=== PATIENT | female | born 1970 | race Two or more races ===

== ENCOUNTER 2024-11-28 08:38 | Outpatient (CLI) | payer OTHER | END 2024-11-28 08:44 | disposition home or self-care (01) | LOC: NUCLEAR 08:38 | PROVIDERS: ATTEND Internal Medicine | DX: C50.512 Malignant neoplasm of lower-outer quadrant of left female breast (principal) ==

== ENCOUNTER → 2024-12-13 | Day surgery (SDC) | payer OTHER ==
[2024-12-12 10:19] LABS: PH,URINE 7.5 (5.0-8.0); URINE APPEARANCE Clear; URINE BILIRRUBIN Negative (NEGATIVE); URINE BLOOD Negative; URINE COLOR Yellow; URINE GLUCOSE Negative (NEGATIVE); URINE KETONE Negative (NEGATIVE); URINE LEUKOCYTE Negative; URINE NITRATE Negative; URINE PROTEIN Negative (NEGATIVE); URINE UROBILINOGEN 0.2 E.U./dl
[2024-12-12 10:20] LABS: HEMATOCRIT 40.2 % (36.0-45.00); HEMOGLOBIN 13.2 g/dL (12.0-15.00); MEAN CORPUSCULAR HEMOGLOBIN 25.7 pg (27.00-32.0); MEAN CORPUSCULAR HGB CONC 32.9 g/dl (32.0-36.0); PLATELET COUNT 245 K/uL (150-450); RED BLOOD COUNT 5.16 M/uL (4.00-6.00); RED CELL DISTRIBUTION WIDTH 13.6 % (11.5-14.5)
[2024-12-12 10:39] LABS: URINE BACTERIA 0 uL (0.0-1933); URINE EPITHELIAL CELLS 1.2 uL (0.0-38.8); URINE WBC 0.3 uL (0.0-23.2)
[2024-12-12 10:48] LABS: INR 0.95; PARTIAL THROMBOPLASTIN TIME 26.5 SECONDS (22.0-34.0); PROTHROMBIN TIME 10.4 SECONDS (9.0-11.5)
[2024-12-12 11:16] VITALS: BP 115/76
[2024-12-12 11:22] LABS: CALCIUM 9.2 mg/dL (8.5-10.1); CREATININE SERUM 0.74 mg/dL (0.55-1.02); GFR 82.09; POTASSIUM 4.28 mEq/L (3.5-5.1)
[~2024-12-13] VITALS: Ht 165.1 cm; Wt 72.1 kg
[~2024-12-13] MED LIST: ALENDRONATE SOD70 MG PO; BUPIVACAINE HCL 0.5% 50ML VIAL ONE; BUPIVACAINE HCL/MPF 0.5% 30ML VIAL ONE; CEFAZOLIN SODIUM 1,000 MG VIAL IJ ONE; CEFAZOLIN SODIUM 1,000 MG VIAL ONE; CLINDAMYCIN PHOSPHATE 150 MG/ML (900mg) IV ONE; CLINDAMYCIN PHOSPHATE 150 MG/ML (900mg) ONE; COMBIGAN; EPINEPHRINE HCL/PF 1 MG/ML AMPUL ONE; ESTRADIOL; GENTAMICIN SULFATE 40 MG/ML VIAL IR ONE; GENTAMICIN SULFATE 40 MG/ML VIAL ONE; LATANOPROST2.5 ML OP; LEVOXYL88 MCG PO; MONTELUKAST SODI4 M1; MORPHINE SULFATE 4 MG/ML VIAL IV ONE; NITROGLYCERIN 1 INCH OINT..GM. TD ONE; POVIDONE-IODINE 118 ML BOTT TOP ONE; POVIDONE-IODINE SCRUB 118 ML BOTT TOP ONE; PROMETRIUM200 MG PO; VITAMIN D3
== END | disposition home or self-care (01) ==
LOC: ADM 12-12 15:00 → CIR.AMB 06:00
PROVIDERS: ATTEND Surgery
DX: C50.212 Malignant neoplasm of upper-inner quadrant of left female breast (principal); D48.61 Neoplasm of uncertain behavior of right breast; N60.91 Unspecified benign mammary dysplasia of right breast; R59.0 Localized enlarged lymph nodes; Z90.13 Acquired absence of bilateral breasts and nipples; Z88.6 Allergy status to analgesic agent; Z91.040 Latex allergy status; G43.909 Migraine, unspecified, not intractable, without status migrainosus; H40.9 Unspecified glaucoma; J32.9 Chronic sinusitis, unspecified; M85.80 Other specified disorders of bone density and structure, unspecified site

== ENCOUNTER 2025-01-10 06:43 | Day surgery (SDC) | payer OTHER ==
[2025-01-08 13:02] VITALS: BP 123/81
[~2025-01-10] VITALS: Ht 165.1 cm; Wt 71.2 kg
[~2025-01-10 06:43] MED LIST changes: -BUPIVACAINE HCL 0.5% 50ML VIAL ONE; -BUPIVACAINE HCL/MPF 0.5% 30ML VIAL ONE; -CEFAZOLIN SODIUM 1,000 MG VIAL IJ ONE; -CEFAZOLIN SODIUM 1,000 MG VIAL ONE; -CLINDAMYCIN PHOSPHATE 150 MG/ML (900mg) IV ONE; -CLINDAMYCIN PHOSPHATE 150 MG/ML (900mg) ONE; -EPINEPHRINE HCL/PF 1 MG/ML AMPUL ONE; -GENTAMICIN SULFATE 40 MG/ML VIAL IR ONE; -GENTAMICIN SULFATE 40 MG/ML VIAL ONE; -MORPHINE SULFATE 4 MG/ML VIAL IV ONE; -NITROGLYCERIN 1 INCH OINT..GM. TD ONE; -POVIDONE-IODINE 118 ML BOTT TOP ONE; -POVIDONE-IODINE SCRUB 118 ML BOTT TOP ONE
[2025-01-10] MEDS ORDERED: CEFAZOLIN SODIUM 1,000 MG VIAL ONE (09:10)
[2025-01-10] MEDS ORDERED: LIDOCAINE HCL 1%/EPINEPHRINE 20ML VIAL IJ ONE (09:10)
[2025-01-10] MEDS ORDERED: LIDOCAINE HCL 1% 20 ML VIAL IJ ONE (09:10)
[2025-01-10] MEDS ORDERED: HEPARIN SODIUM,PORCINE/PF 100 UNIT/ML SYRINGE IV ONE (09:12)
[2025-01-10] MEDS ORDERED: TRAM1TAB98 PO (10:07)
[2025-01-10] MEDS ORDERED: MORPHINE SULFATE 4 MG/ML VIAL IV ONE (11:45)
== END 2025-01-10 13:20 | disposition home or self-care (01) ==
LOC: CIR.AMB 06:43
PROVIDERS: ATTEND Surgery
DX: C50.012 Malignant neoplasm of nipple and areola, left female breast (principal); J45.909 Unspecified asthma, uncomplicated; E03.8 Other specified hypothyroidism; Z88.6 Allergy status to analgesic agent; Z91.040 Latex allergy status
CPT/HCPCS: 36561; C1751

== ENCOUNTER 2025-08-15 08:00 | Day surgery (SDC) | payer OTHER ==
[2025-08-08 15:51] VITALS: BP 137/86
[~2025-08-15] VITALS: Ht 165.1 cm; Wt 72.1 kg
[~2025-08-15 08:00] MED LIST changes: +TRAM1TAB98 PO
[2025-08-15] MEDS ORDERED: CLINDAMYCIN PHOSPHATE 150 MG/ML (900mg) ONE (08:54)
[2025-08-15] MEDS ORDERED: VANCOMYCIN HCL 1,000 MG VIAL ONE (13:03)
[2025-08-15] MEDS ORDERED: CEFAZOLIN SODIUM 1,000 MG VIAL ONE (13:03)
[2025-08-15] MEDS ORDERED: GENTAMICIN SULFATE 40 MG/ML VIAL ONE (13:04)
[2025-08-15] MEDS ORDERED: POVIDONE-IODINE 118 ML BOTT TOP ONE (13:04)
[2025-08-15] MEDS ORDERED: POVIDONE-IODINE SCRUB 118 ML BOTT TOP ONE ×2 (13:04→13:05)
[2025-08-15] MEDS ORDERED: TRANEXAMIC ACID 100MG/1ML (1000MG) AMPUL ONE (13:05)
[2025-08-15] MEDS ORDERED: SUGAMMADEX SODIUM 200 MG/2 ML VIAL IV ONE (14:29)
[2025-08-15] MEDS ORDERED: ONDANSETRON HCL 2 MG/ML VIAL IV PRN (16:15)
== END 2025-08-15 17:30 | disposition home or self-care (01) ==
LOC: CIR.AMB 08:00
PROVIDERS: ATTEND Plastic Surgery
DX: N65.0 Deformity of reconstructed breast (principal); C50.212 Malignant neoplasm of upper-inner quadrant of left female breast; D48.61 Neoplasm of uncertain behavior of right breast; Z80.3 Family history of malignant neoplasm of breast; Z90.13 Acquired absence of bilateral breasts and nipples; Z88.6 Allergy status to analgesic agent; Z91.040 Latex allergy status